=== PATIENT | female | born 1990 | race Caucasian/White ===

== ENCOUNTER 2022-01-09 15:19 | Day surgery (SDC) | payer OTHER ==
[2012-12-21 00:53] VITALS: BP 126/64
[2022-01-09] MEDS ORDERED: Depo-Medrol 40 MG/ML IM ONE (15:20)
[2022-01-09] MEDS ORDERED: BUPIVACAINE 0.5% VIAL IJ ONE (15:20)
[2022-01-09] MEDS ORDERED: LIDOCAINE HCL 1% 50 MG/5 ML VL PF IJ ONE (15:20)
--- NOTE | 2022-01-09 18:46 | XRAY ---
Indication: Bilateral SI joint injection. Intraoperative fluoroscopy provided for 15 seconds. 5 digital spot image submitted for interpretation demonstrates posterior needle tip projecting over the left and right SI joint. Correlate with intraoperative findings/report.
--- NOTE | 2022-01-10 08:42 | XRAY ---
15 seconds of fluoroscopy was used in surgery for a bilateral sacroiliac joint injection.
== END 2022-01-09 17:27 | disposition home or self-care (01) ==
LOC: SDC-PAIN 15:19
PROVIDERS: ATTEND Psychiatry & Neurology Pain Medicine
DX: M46.1 Sacroiliitis, not elsewhere classified (principal); Z79.899 Other long term (current) drug therapy
CPT/HCPCS: 27096; 72202; 77002; 81025; J1030; J2001; G0260